=== PATIENT | male | born 1975 | race Caucasian/White ===

== ENCOUNTER 2018-01-04 06:13 | Day surgery (SDC) | payer OTHER ==
[~2018-01-04] VITALS: Ht 180.3 cm; Wt 68.2 kg
[2018-01-04] MEDS ORDERED: LIDOCAINE HCL 2% 30 ML JELLY TP ONE (06:14)
[2018-01-04] MEDS ORDERED: BENZOCAINE 20% 50 MCG/SPRAY 57 GM TP ONE (06:14)
[2018-01-04] MEDS ORDERED: ALBUTEROL SULFATE 2.5 MG/0.5 ML NEB SOLUTION NEB ONE (06:14)
[2018-01-04] MEDS ORDERED: LIDOCAINE HCL 4% 50 ML SOLUTION TP ONE (06:14)
[2018-01-04] MEDS ORDERED: SODIUM CHLORIDE 0.9% 1,000 ML IV ONE ×2 (06:23→07:00)
[2018-01-04] MEDS ORDERED: OMEP20 PO (06:57)
[2018-01-04] MEDS ORDERED: MONT10TA21 PO (06:57)
[2018-01-04] MEDS ORDERED: BECL8.7A7 IH (06:57)
[2018-01-04] MEDS ORDERED: FLUT16H NASAL (06:57)
[2018-01-04] MEDS ORDERED: CITA10TA68 PO (06:57)
[2018-01-04] MEDS ORDERED: NORT25 PO (06:57)
[2018-01-04] MEDS ORDERED: GABA-531 PO (06:57)
[2018-01-04] MEDS ORDERED: MIDAZOLAM HCL 2 MG/2 ML VIAL ONE (07:59)
[2018-01-04] MEDS ORDERED: FentaNYL CITRATE-PF 100 MCG/2 ML VIAL ONE (07:59)
[2018-01-04] MEDS ORDERED: MethylPREDNISolone SOD SUCC 125 MG/2 ML VIAL IVP ONE (08:45)
[2018-01-04] MEDS ORDERED: MethylPREDNISolone SOD SUCC 125 MG/2 ML VIAL ONE (08:55)
[2018-01-04] MEDS ORDERED: OXYGEN THERAPY IH SCH (20:00)
== END 2018-01-04 09:45 | disposition home or self-care (01) ==
LOC: SURGERY 06:13
PROVIDERS: ATTEND Internal Medicine Critical Care Medicine
DX: J38.4 Edema of larynx (principal); B37.0 Candidal stomatitis; F10.21 Alcohol dependence, in remission; Z90.89 Acquired absence of other organs; Z79.52 Long term (current) use of systemic steroids; Z79.899 Other long term (current) drug therapy
CPT/HCPCS: 31623; 31624; 71045; 87015; 87070; 87205; 87220; 88108; 88312; J2250; J2930; J3010; J7030